=== PATIENT | female | born 1995 | race Caucasian/White ===

== ENCOUNTER 2023-08-10 20:57 | Emergency (ER) | payer MEDICAID ==
[~2023-08-10] VITALS: Ht 165.1 cm; Wt 79.8 kg
[2023-08-10] MEDS ORDERED: DOXYCYCLINE 100MG CAPSULE PO STA ×2 (21:06→21:56)
[2023-08-10] MEDS ORDERED: cephalexin 250mg capsule PO ONE ×2 (21:10→22:00)
[2023-08-10] MEDS ORDERED: DOXY100C43 PO (22:06)
[2023-08-10] MEDS ORDERED: CEPH250T PO (22:06)
[2023-08-10 22:15] VITALS: BP 145/83; PULSE 88; RESP 15; TEMP 98.3; O2SAT 96
== END 2023-08-10 22:17 | disposition home or self-care (01) ==
LOC: ER 20:58
DX: I87.8 Other specified disorders of veins (principal); L03.116 Cellulitis of left lower limb
CPT/HCPCS: 93971; 99284

== ENCOUNTER 2025-09-15 11:36 | Inpatient (IN) | payer MEDICAID ==
[~2025-09-15] VITALS: Ht 162.6 cm; Wt 88.0 kg
--- NOTE | 2025-09-15 11:48 | Physician Documentation ---
History of Present Illness ~ Chief Complaint: Extremity Swelling Stated Complaint: LEG SWELLING Time Seen by MD: 11:47 HPI 30-year-old female presenting with leg swelling The patient is a challenging historian. She is unsure about many details. She tells me that she recently had a about a week ago. She also reports that for the past several weeks she has had significant swelling in her legs. She can not tell me exactly how long this has been happening. She states they are very swollen and painful. Does report some exertional shortness of breath. No current chest pain. She says that she was recently admitted to [facility], but does not know what they did. She does have a history of fentanyl and methamphetamine use History otherwise limited at this time Later, records were obtained from [facility]. It appears she had a stillbirth at 35 weeks, requiring a . She had significant anemia with a hemoglobin of 2.9 received multiple blood transfusions. She did receive you significant IV fluids, which may have contributed to her leg swelling. She had a cardiac echo which showed an ejection fraction of 60-65%. A CTA chest which showed no pulmonary embolus. This was also concerning for bilateral basilar pneumonia and esophagitis. Tetanus witin 5 years: No Medication Reconciliation Allergies: Coded Allergies: No Known Allergies (Unverified , 09/15/25) Past Medical History Past Medical History: No Pertinent History Past Surgical History: no surgical history Alcohol Use: Rarely Drug Use: methamphetamine Lives In: Home Review of Systems Constitutional: Reports: weakness; Denies: fever Respiratory: Reports: shortness of breath Cardiovascular: Reports: edema; Denies: chest pain Physical Exam Vital Signs: Temperature: 97.9, Source: Oral, Heart Rate: 109, Respiratory Rate: 18, BP: 138/109, Pulse Oximetry: 100, Weight: 88.000 Physical Exam General: This is a young female, with massive swelling to both legs HEENT: Atraumatic, oropharynx is dry Heart: Mild tachycardic, appears regular Lungs: Diminished breath sounds bilateral, normal work of breathing, normal oxygen saturation on room air Abdomen: Soft, nondistended Postsurgical scar over the lower abdomen in a horizontal orientation, appears well healing, no surrounding erythema or purulent drainage No significant abdominal tenderness on palpation Extremities: Massive pitting edema to both lower extremities, diffuse tenderness on palpation, no overlying erythema Neuro: Alert and oriented Psychiatric: Appears anxious but is cooperative with exam Progress Results/Orders Results/Orders Orders - DURGA KENDALL MD Pantoprazole 40mg/Ns 100ml Bag (Protonix (09/15/25 18:35) Vital Signs 09/15/25 09/15/25 09/15/25 09/15/25 11:39 12:03 12:59 14:25 Temp 97.9 97.7 Pulse 109 94 Resp 18 14 13 B/P (MAP) 138/109 106/52 Pulse Ox 100 09/15/25 09/15/25 09/15/25 09/15/25 14:47 15:45 16:00 16:21 Temp 97.9 97.6 97.9 Pulse 93 95 100 Resp 12 12 12 11 B/P (MAP) 102/59 112/70 114/88 09/15/25 09/15/25 16:38 18:52 Temp 97.9 Pulse 100 99 Resp 13 14 B/P (MAP) 121/67 (85) 121/74 (90) Pulse Ox 100 100 O2 Flow Rate 0 0 Laboratory Tests Test 09/15/25 11:59 09/15/25 17:41 09/15/25 19:08 09/15/25 19:37 White Blood Count 9.4 10.4 Red Blood Count 1.96 L 2.40 L Hemoglobin 6.1 *L 7.3 L Hematocrit 17.5 *L 21.0 *L Mean Corpuscular Volume 89.2 87.8 Mean Corpuscular Hemoglobin 31.1 H 30.3 Mean Corpuscular Hemoglobin Concent 34.9 34.6 Red Cell Distribution Width 32.9 H 19.2 H Platelet Count 158 143 Mean Platelet Volume 9.2 9.3 Neutrophils (%) (Auto) 73.0 Lymphocytes (%) (Auto) 21.8 Monocytes (%) (Auto) 4.6 Eosinophils (%) (Auto) 0.1 Basophils (%) (Auto) 0.5 Neutrophils # (Auto) 6.8 Lymphocytes # (Auto) 2.0 Monocytes # (Auto) 0.4 Eosinophils # (Auto) 0.0 Basophils # (Auto) 0.0 CBC Comment Differential Total Cells Counted 100 Neutrophils % (Manual) 72.0 Band Neutrophils % 2.0 Lymphocytes % (Manual) 16.0 L Monocytes % (Manual) 9.0 Metamyelocytes % 1.0 H Nucleated Red Blood Cells 6 H Platelet Estimate Normal Red Blood Cell Morphology Perf Polychromasia 2+ Basophilic Stippling Anisocytosis 3+ Microcytosis 1+ Macrocytosis 1+ Schistocytes 1+ Hematology Pathologist Comment See note Sodium Level 135 Potassium Level 4.0 Chloride Level 100 Carbon Dioxide Level 29.4 Anion Gap 6 L Blood Urea Nitrogen 38 H Creatinine 0.92 H Estimated GFR/1.73 m2 71 BUN/Creatinine Ratio 41.3 H Glucose Level 110 H Hemoglobin A1c 4.8 Calcium Level 7.9 L Magnesium Level 2.1 Total Bilirubin 0.6 Direct Bilirubin 0.2 Aspartate Amino Transf (AST/SGOT) 21 Alanine Aminotransferase (ALT/SGPT) 24 Alkaline Phosphatase 120 H Lactate Dehydrogenase 676 H Pro-B-Type Natriuretic Peptide 225 H Total Protein 5.1 L Albumin 1.7 L Globulin 3.4 Albumin/Globulin Ratio 0.5 L Thyroid Stimulating Hormone (TSH) 4.32 Chemistry Comments Ethyl Alcohol Level < 10 Hematology Comments Urine Specimen Description Cln catch midstream Urine Color Yellow Urine Clarity Slightly cloudy Urine pH 6.0 Urine Specific [place] <=1.005 Urine Protein Negative Urine Glucose (UA) Negative Urine Ketones Negative Urine Occult Blood Moderate H Urine Nitrite Negative Urine Bilirubin Negative Urine Urobilinogen 4.0 H Urine Leukocyte Esterase Small H Urine RBC 3-10 Urine WBC 10-20 H Urine Squamous Epithelial Cells Few Urine Bacteria Few Urine Mucus Few Urine Culture Indicated Indicated Volume Urine Centrifuged 10 ml Urine Comment EKG/XRAY/CT/US/VASC/MRI CT : Impression I personally interpreted the CT scan, and this shows no acute process in the abdomen, and diffuse edema in the legs without obvious cause Consults/PCP Consults/PCP : Additional Comment Consult: I spoke to the internal medicine service, for admission in the hospital Medical Decision Making Additional information obtaine: family Findings Mother reports that the patient had renal failure, and left [facility] because of fentanyl withdrawal. General Diff Dx:Considerations: Unlikely: Laceration Knee Diff Dx:Considerations: Unlikely: Laceration Ankle Diff Dx:Considerations: Unlikely: Hematoma Foot Diff Dx:Considerations: Unlikely: Fracture-tarsal Toe Diff Dx:Considerations: Unlikely: Fracture Additional Comment Differential includes volume overload, CHF, renal failure, electrolyte derangement, sepsis, withdrawal Assessment The patient presents with severe swelling to her legs as well as generalized weakness. Labs show significant anemia and so she was given a blood transfusi on. Labs otherwise show normal kidney function. The cause of her leg swelling was unclear. Initially we could not obtain records from the outside hospital. I then proceeded with imaging including an ultrasound that shows no DVT, and CT scan which shows edema but no dangerous obvious cause. She does not have findings that really suggest infection. She did have significant anxiety and signs of opiate withdrawal and so she was given IV Dilaudid and Valium. Given her severe swelling and pain she will require admission for diuresis and further evaluation. Departure Admitted to Inpatient Unit: yes, to hospitalist Impression: Primary Impression: Edema of lower extremity Additional Impression: Acute blood loss anemia Condition: Guarded Referrals: NO PRIMARY CARE PROVIDER (PCP) Signature Scribe Signature: na Attestation: The note accurately reflects work and decisions made by me.Durga Kendall MD 09/16/25 04:10 na STEFANIE MUSA MD Sep 15, 2025 11:48 DURGA KENDALL MD Sep 16, 2025 04:10
[2025-09-15 12:11] LABS: RED CELL DISTRIBUTION WIDTH 32.9 % (11.5-14.5)
[2025-09-15 12:12] LABS: MEAN PLATELET VOLUME 9.2 FL (7.4-10.4)
[2025-09-15 12:27] LABS: BANDS% (MANUAL) 2.0 % (0-10); LYMPHOCYTES % (MANUAL) 16.0 % (21-51); METAMYLEOCYTES% (MANUAL) 1.0 % (0-0); MONOCYTES % (MANUAL) 9.0 % (2-12); NEUTROPHILS % (MANUAL) 72.0 % (42-75); NUCLEATED RED BLOOD CELLS 6 /100WBC (0-0)
[2025-09-15 12:28] LABS: PLATELET ESTIMATE NORMAL
--- NOTE | 2025-09-15 12:29 | ELECTROCARDIOGRAPH REPORT ---
[facility] Test Date: 2025-09-15 Test Time: 12:25:13 Pat Name: LACHELLE VALDEZ Department: [facility]-ER Patient ID: [id number] Room: ED 6 Gender: F Ship Steward: : 1995 Requested By: STEFANIE MUSA Order Number: [id number] Reading MD: Dr. JOAQUIN Reese Measurements Intervals [place] Rate: 104 P: 59 MS: 112 QRS: 76 QRSD: 87 T: 63 QT: 336 QTc: 442 Interpretive Statements Sinus tachycardia Electronically Signed On 09-16-2025 18:41:[address] JOAQUIN Reese Please click the below link to view image of tracing.
[2025-09-15 13:21] LABS: CREATININE 0.92 MG/DL (0.40-0.90); TOTAL CARBON DIOXIDE 29.4 MMOL/L (24-32); eCRCL 76 ML/MIN; eGFR 71 ML/MIN
[2025-09-15 13:32] LABS: PRO BRAIN NATRIURETIC PEPTIDE 225 PG/ML (0-125)
[2025-09-15 14:25] VITALS: BP 106/52; PULSE 94; RESP 13; TEMP 97.7
[2025-09-15 14:47] VITALS: BP 102/59; PULSE 93; RESP 12; TEMP 97.9
[2025-09-15 15:45] VITALS: BP 112/70; PULSE 95; RESP 12; TEMP 97.6
[2025-09-15] MEDS: diazepam inj 5 MG/ML inj. IV ONE (16:00)
--- NOTE | 2025-09-15 16:03 | VASCULAR REPORT ---
Bilateral lower extremity venous duplex Clinical History: Pain Comparison: VASC VL VENOUS on DOS: 08/10/23 Technique: Duplex Doppler evaluation of the deep venous systems of both lower extremities from the common femoral veins to the popliteal veins including color Doppler and spectral/pulsed waveform analysis was performed. Findings: RIGHT SIDE: The common femoral vein demonstrates appropriate compressibility and waveform variability. There is compressibility/patency of the great saphenous vein at the proximal thigh. The femoral vein demonstrates appropriate compressibility and waveform variability. The deep femoral vein demonstrates appropriate compressibility and waveform variability. The popliteal vein demonstrates appropriate compressibility and waveform variability. There is normal compressibility at the tibioperoneal trunk. LEFT SIDE: The common femoral vein demonstrates appropriate compressibility and waveform variability. There is compressibility/patency of the great saphenous vein at the proximal thigh. The femoral vein demonstrates appropriate compressibility and waveform variability. The deep femoral vein demonstrates appropriate compressibility and waveform variability. The popliteal vein demonstrates appropriate compressibility and waveform variability. There is normal compressibility at the tibioperoneal trunk. Impression: No right or left femoropopliteal venous thrombosis.
[2025-09-15 16:21] VITALS: BP 114/88; PULSE 100; RESP 11; TEMP 97.9
--- NOTE | 2025-09-15 17:52 | RADIOLOGY REPORT ---
Exam: CT CT ABDOMEN PELVIS History: bilateral severe leg swelling COMPARISON: None Technique: Multidetector spiral CT of the abdomen and pelvis was performed from lung bases to pubic symphysis. Intravenous contrast was administered during this examination. Portal venous imaging was obtained. Axial, coronal and sagittal multiplanar reformats were performed by the technologist on a separate workstation. Radiation Dose : 1. Abdomen/Pelvis: CTDIvol 26.21 mGy, DLP 1320.01 mGy*cm. CONTRAST: Type of contrast: Omnipaque 350 Contrast injected: 100 ml Findings: Lung Bases: No acute or significant lung base finding. Normal heart size. No pleural or pericardial effusion. Liver: The liver appears enlarged. No focal lesions. Normal hepatic vascular enhancement. Gallbladder and Biliary Tree: Unremarkable Spleen: Unremarkable Pancreas: The pancreas is normal in appearance without focal lesions or abnormal enhancement. Adrenal Glands: Unremarkable Kidneys: No hydronephrosis. Bladder: Unremarkable Bowel: Circumferential thickening of the distal esophagus. Small hiatal hernia. The stomach is grossly normal in appearance. Small bowel and colon are normal in caliber and distribution. The appendix is not visualized; however, no secondary findings of acute appendicitis identified. Ascites: Absent Lymphadenopathy: No mesenteric, retroperitoneal or periportal lymphadenopathy. Abdominal Wall and Mesentery: Unremarkable. Vasculature: The visualized abdominal aorta is normal in size and caliber. Abdominal and pelvic vessels demonstrate normal enhancement. Pelvic Organs: Uterus is enlarged. Musculoskeletal: No aggressive focal bony lesions, acute fractures or dislocation. IMPRESSION: Bulky uterus. Circumferential thickening of the distal esophagus presumably related to esophagitis. Please correlate clinically and consider endoscopy to exclude any mass. No clear cause for leg swelling. Radiation optimization: All CT scans at this facility use at least one of these dose optimization techniques: automated exposure control mA and/or kV adjustment per patient size (includes targeted exams where dose is matched to clinical indication) or iterative reconstruction.
--- NOTE | 2025-09-15 17:57 | RADIOLOGY REPORT ---
INDICATION: BILATERAL TOTAL LEG SWELLING AND REDNESS COMPARISON: None TECHNIQUE: CT of the both lower extremities was performed without contrast. Volume transverse images were obtained and reconstructed in multiple planes using bone and soft tissue algorithms. Radiation Dose Information: CT Dose: CTDI volume is 11.92 mGy. Dose-length product is 1195.53 mGy*cm FINDINGS: Diffuse soft tissue edema throughout both lower extremities and appears symmetric. This is worse in the lower shins and ankles. No organized fluid collections. No fracture or malalignment. No erosive bony changes IMPRESSION: Severe diffuse soft tissue swelling throughout both lower extremities. Cause not entirely clear. All CT scans at this medical facility are performed using dose modulation techniques as appropriate to a performed exam including the following: Automated exposure control was utilized; adjustment of the MA and/or KV according to patient size; and use of iterative reconstruction technique.
[2025-09-15] MEDS: pantoprazole 40MG/NS 100ML BAG 100 ML IV SCH (18:41)
[2025-09-15] MEDS: furosemide 10 MG/1 ML 10ml inj IV ONE (18:42)
[2025-09-15 19:18] LABS: MEAN PLATELET VOLUME 9.3 FL (7.4-10.4); RED CELL DISTRIBUTION WIDTH 19.2 % (11.5-14.5)
[2025-09-15 20:02] LABS: LEUKOCYTE ESTERASE ,URINE SMALL (Neg); NITRITES, URINE NEGATIVE (Neg); OCCULT BLOOD,URINE MODERATE (Neg)
[2025-09-15 20:04] LABS: UA COLLECTION TYPE CLN CATCH MIDSTREAM
[2025-09-15 20:07] LABS: MUCUS STRANDS FEW /LPF (Neg); SQUAMOUS EPITHELIAL CELL,UR FEW /LPF (FEW)
[2025-09-15] MEDS ORDERED: magnesium sulf-water 4G/100mL 100 ML IV PRN (20:50)
[2025-09-15] MEDS ORDERED: diazepam inj 5 MG/ML inj. IV PRN (20:50)
[2025-09-15] MEDS ORDERED: magnesium sulf-water 2g/50mL 50 ML IV PRN (20:50)
[2025-09-15] MEDS ORDERED: ondansetron/PF 4mg/2ml inj IV PRN (20:50)
[2025-09-15] MEDS ORDERED: docusate sod 100mg capsule PO PRN (20:50)
[2025-09-15] MEDS ORDERED: PERFLUTREN PROTEIN-A MICROSPHR (Optison) 0.22 MG/ML 3ML VIAL IV ONE (20:50)
[2025-09-15] MEDS ORDERED: magnesium hydroxide 30ml (MOM) UD suspension PO PRN (20:50)
[2025-09-15] MEDS ORDERED: HYDROmorphone/PF 0.2 MG/ML SYRINGE IV PRN (20:50)
[2025-09-15] MEDS ORDERED: potassium Cl 40MEQ/1/2NS 520ml 520 ML IV PRN (20:50)
[2025-09-15] MEDS ORDERED: potassium Cl 20 mEq SR tablet PO PRN ×2 (20:50)
[2025-09-15] MEDS ORDERED: mag hydrox/Alum hydrox/simeth 30ml oral suspension PO PRN (20:50)
[2025-09-15] MEDS ORDERED: magnesium Cl slow-release 64mg tablet PO PRN (20:50)
[2025-09-15] MEDS ORDERED: nicotine 14mg patch - 24hr TD PRN (21:35)
[2025-09-15] MEDS ORDERED: nicotine 14mg patch - 24hr TD ONE (21:35)
[2025-09-15] MEDS: HYDROmorphone inj. 0.5 MG/0.5 ML DISP.SYRIN IV PRN (21:43)
[2025-09-15] MEDS: normal saline 500ml IV soln 1,000 ML IV ONE (21:44)
[2025-09-15 22:21] LABS: LACTATE DEHYDROGENASE 676 U/L (81-234)
--- NOTE | 2025-09-15 22:48 | HISTORY AND PHYSICAL-Residence ---
History & Physical Providers to CC Resident Creating Document: AMANDA HERNANDEZJUAN ~ History of Present Illness Reason for Admit\Complaint: Symptomatic anemia from GI Bleeding, s/p Still and C section History of Present Illness A 28 years old female with a past medical history of severe polysubstance abuse ( fentanyl, methamphetamine, tobacco, alcohol), A3 L1 who was recently admitted to [facility] for possible DIC from retained still and conception on Last September 08 complicated with severe anemia and left AMA presented to the ER for chronic painful severe bilateral leg swelling and vomiting of the blood. She is a poor historian. She stated that she had a still and C section on last September 08 which was possibly complicated with DIC and sepsis from the possible RPOC found to have sever anemia of Hb 2.9 for which she was given total PRBC [address] [facility]. At that time, she endorsed that she has been vomiting of the black color staff and passing the blood clots through her canal after she found to have positive blood culture for Coagulase negative Stap aureus for which she was given IV ABx. Today, she came in our ER for having severe SOB and still vomiting of the black stuff with the main concern of painful bilateral severe leg swellings which made her total bed bound for nearly 2 weeks now. She attributed all of her events to her drugs abuse. She denied for orthopnea PND. 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 She denied for any personal and family blood dyscrasia including blood clots DVT and PE before. In ER, patient was found to have severe anemia with hemoglobin 6.1 for which 1 unit of PRBC's was given. She was wondering when she will be discharged very soon. She left AMA from [facility] because she was not given enough pain medication for her pain. Allergies: Coded Allergies: No Known Allergies (Unverified , 09/15/25) Home Medications Home Medications Active Past Medical History Past Medical History severe polysubstance abuse ( fentanyl, methamphetamine, tobacco, alcohol), A3 L1 Past Surgical History Surgical History Comment S/p for still Past Social History Social History Comment Severe polysubstance abuse-fentanyl, methamphetamine, tobacco, ethanol 4 times of with a 3 times of miscarriage, she started her since she was 13 years old Alcohol Use: Rarely Drug Use: Methamphetamine Lives In: Home ROS All Other Systems: Reviewed and Negative Constitutional: Reports: weakness; Denies: fever Respiratory: Reports: shortness of breath Cardiovascular: Reports: edema; Denies: chest pain Exam Vitals: Vital Signs Date Time Temp Pulse Resp B/P (MAP) Pulse Ox O2 Delivery O2 Flow Rate FiO2 09/15/25 21:44 97.9 112 14 111/66 (81) 100 0 General: General: Well alert, well oriented, not confused, not agitated, not in acute distress, well cooperated during the physical. HEENT: HEENT: Conjunctive are pink, sclerae clear, no icterus, pupil is equal in both sides, reactive to light, no ear discharge, no pharyngeal erythema or an edema, mouth and lips are dry. Her the whole face showing abnormal skin condition reasonable to livedo reticularis skin pattern only over the face. Neck: Neck: Supple, no JVD, no lymphadenopathy and thyromegaly. Chest: Lungs:Equal air entry on both lungs, no additional sounds Cardiovascular: Heart: S1-S2 regular sinus tachycardia, no gallops, no rubs, no murmurs Abdomen: Abdomen: No visible peristalsis, Bowel sounds present on auscultation, soft, nontender, no guarding, no rigidity Extremities: Extremities: No obvious deformities, very severe >3+ pitting tender edema bilaterally, warm on touch, capillary refill intact, able to wiggle toes both sides, peripheral pulsations are intact on both sides Central Nervous System: CHIP MACHINE OPERATOR: No focal neurological deficits, no motor and sensory weakness in all 4 extremities, could move all 4 extremities Musculoskeletal: Musculoskeletal: No joint swelling, deformities, inflammations, and no scoliosis and back tenderness Skin: Skin: No active skin lesions and rashes Diagnostic Data Last Recorded Lab Results: 09/15/25 1908 09/15/25 1159 Diagnostic Data: Laboratory Tests Test 09/15/25 21:34 Coagulation Comments Coagulation Clinical Comments Counseling Services Smoking & Tobacco Cessation: > 10 Minutes Advance Care Planning Advanced Care plannin - 30 Minutes Additional Plan A 28 years old female with a past medical history of severe polysubstance abuse ( fentanyl, methamphetamine, tobacco, alcohol), A3 L1 who was recently admitted to [facility] for possible DIC from retained still and conception on Last September 08 complicated with severe anemia and left AMA presented to the ER for chronic painful severe bilateral leg swelling and vomiting of the blood. # Symptomatic anemia from # Possible GI bleeding Vs Complications from previous Still / RPOC and menorrhagia # Painful bilateral severe pitting legs edema -was given one unit of PRBC for Hb 6.1 in ER, rechecked was 7.3 -ER physician will request the GI Consultation for possible EGD in the AM -NPO and H&H Q6H -IV loading dose Protonix 40 mg was given in ER, followed by IV infusion Protonix -Pending FOBT -One time 500 cc NS bolus was given for her symptomatic anemia with sinus tachycardia -her severe tender and pitting bilateral pedal edema etiology were not exclude out at the moment, which could possibly from the exaggerate total 5 units of blood transfusion with a short period for her severe hemoglobin 2.9 versus polysubstance abuse, for which she was given 60 mg of Lasix were given -Monitor her Bleeding per Vagina, to monitor for any RPOC discharge through canal -Ordered Fibrinogen to rule out possible DIC from RPOC. Normal Plt -work up for evidence of intravascular hemolysis pending # polysubstance abuse ( fentanyl, methamphetamine, tobacco, EtOH) -pending drug screen, ETOH level -nicotine patch 14 daily as needed, explained and educated about the potential coronary vasospasm and chest pain from nicotine patch -social services director and a substance navigation # possible ANKUR most probably from the renal 2/2 substance abuse # nonspecific elevation of alkaline phosphatase # asymptomatic bacteriuria -to differentiate between hep active versus orthopedic induced hyper alkaline phosphatamia by ordering GGT -strict I's and o's monitoring -not necessary antibiotic therapy for asymptomatic bacteriuria, awaiting culture and sensitivity, and blood culture and sensitivity CODE STATUS: Full code DVT prophylaxis: SC heparin Analgesia/sedation: Hydromorphone only needed S patient pain through show was very long Lines/tubes: PIV GI prophylaxis: Protonix Nutrition: NPO Prognosis: Guarded Disposition: Continue medical management including IV I Protonix, substance navigation, social services director, pain control, H&H, GI consultation, PT eval and DC plan. Resident attestation: AMANDA HERNANDEZ MD Internal Medicine Resident, PGY3 [facility] Patient left AMA before I could see her Date of Service: Sep 15, 2025 Billing Provider: GOMEZ RAMIREZ MD, TIN, RES Sep 15, 2025 22:48 GOMEZ RAMIREZ MD Sep 16, 2025 02:55
[2025-09-15 22:53] LABS: ETHANOL < 10 MG/DL (<10)
[2025-09-15 23:15] VITALS: BP 112/78; PULSE 100; RESP 16; TEMP 97.9; O2SAT 100
--- NOTE | 2025-09-15 23:17 | DISCHARGE SUMMARY-Residence ---
Discharge Summary Providers to CC Resident Creating Document: AMANDA HERNANDEZ, RES ~ Discharge Summary Admission Diagnosis: Possible GI bleeding w/ symptomatic anemia Hospital Course DATE OF ADMISSION: 09/15/25 DATE OF DISCHARGE:09/15/25 (Left AMA) Discharge Diagnosis\Comment: # Symptomatic anemia from # Possible GI bleeding Vs Complications from previous Still / RPOC and menorrhagia # Painful bilateral severe pitting legs edema # polysubstance abuse ( fentanyl, methamphetamine, tobacco, EtOH)# possible ANKUR most probably from the renal 2/2 substance abuse # nonspecific elevation of alkaline phosphatase # asymptomatic bacteriuria Operations\Procedures: None Consultants: None Complications: None Condition on DC: Unstable Discharge Summary: A 28 years old female with a past medical history of severe polysubstance abuse ( fentanyl, methamphetamine, tobacco, alcohol), A3 L1 who was recently admitted to [facility] for possible DIC from retained still and conception on Last September 08 complicated with severe anemia and left AMA p resented to the ER for chronic painful severe bilateral leg swelling and vomiting of the blood. Patient was admitted to the PCU floor for further management and workup. -was given one unit of PRBC for Hb 6.1 in ER, rechecked was 7.3 -ER physician will request the GI Consultation for possible EGD in the AM -NPO and H&H Q6H -IV loading dose Protonix 40 mg was given in ER, followed by IV infusion Protonix -Pending FOBT -One time 500 cc NS bolus was given for her symptomatic anemia with sinus tachycardia -her severe tender and pitting bilateral pedal edema etiology were not exclude out at the moment, which could possibly from the exaggerate total 5 units of blood transfusion with a short period for her severe hemoglobin 2.9 versus polysubstance abuse, for which she was given 60 mg of Lasix were given -Monitor her Bleeding per Vagina, to monitor for any RPOC discharge through canal -Ordered Fibrinogen to rule out possible DIC from RPOC. Normal Plt -work up for evidence of intravascular hemolysis pending -pending drug screen, ETOH level -nicotine patch 14 daily as needed, explained and educated about the potential coronary vasospasm and chest pain from nicotine patch -social problems specialist and a substance navigation After patient agreed to be hospitalized in ER, ER nurse reported that patient wanted to leave AMA. After 20 minutes discussion and education and counselling about the life-threatening situation from the current medical condition without having proper treatment, ic patient fully understood the consequences. Pt would be picked by her friend and she was told to go to ER [facility] for any emergency condition. Resident MD attestation: AMANDA HERNANDEZ MD Internal Medicine Resident, PGY3 [facility] Patient left AMA before I could see her *Problems/Diagnosis: (1) Cellulitis Status: Acute (2) Acute blood loss anemia Status: Acute (3) Edema of lower extremity Status: Acute Total Time Spent on D/C: > 30 Minutes Date of Service: Sep 15, 2025 Billing Provider: GOMEZ RAMIREZ MD, TIN, RES Sep 15, 2025 23:16 GOMEZ RAMIREZ MD Sep 16, 2025 02:55
[2025-09-15 23:51] LABS: INR 1.0 INR
[2025-09-15 23:52] LABS: APTT 20 SECONDS (22-32)
--- NOTE | 2025-09-15 23:52 | RADIOLOGY REPORT ---
CHEST RADIOGRAPH Indication: Baseline Technique: Single frontal view of the chest was obtained COMPARISON: None FINDINGS: Lines and Tubes: None Lungs: Clear Pleura: No effusion. No pneumothorax. Cardiomediastinal contours: Unremarkable Bones: Unremarkable IMPRESSION: 1. No acute disease.
[2025-09-16] MEDS ORDERED: heparin, porcine 5000 units/ml vial SQ SCH (08:00)
[2025-09-16] MEDS ORDERED: K and/or MAG REPLACEMENT MC SCH (08:00)
== END 2025-09-15 23:26 | disposition left against medical advice (07) | DRG 561 ==
LOC: ER 11:37 → ED HOLD 19:53
PROVIDERS: ADMIT Internal Medicine; ATTEND Internal Medicine
PROC: 30233N1 Transfusion of Nonautologous Red Blood Cells into Peripheral Vein, Percutaneous Approach (ICD-10-PCS; principal; 2025-09-15)
PROC: BW211ZZ Computerized Tomography (CT Scan) of Abdomen and Pelvis using Low Osmolar Contrast (ICD-10-PCS; 2025-09-15)
DX: O90.81 Anemia of the puerperium (principal); O90.49 Other postpartum acute kidney failure; K92.2 Gastrointestinal hemorrhage, unspecified; O86.29 Other urinary tract infection following delivery; N17.9 Acute kidney failure, unspecified; F19.10 Other psychoactive substance abuse, uncomplicated; O9A.23 Injury, poisoning and certain other consequences of external causes complicating the puerperium; T40.411A Poisoning by fentanyl or fentanyl analogs, accidental (unintentional), initial encounter; D62 Acute posthemorrhagic anemia; O99.63 Diseases of the digestive system complicating the puerperium; D64.89 Other specified anemias; Z53.21 Procedure and treatment not carried out due to patient leaving prior to being seen by health care provider; R82.71 Bacteriuria; O99.325 Drug use complicating the puerperium; T43.651A Poisoning by methamphetamines accidental (unintentional), initial encounter; Z98.891 History of uterine scar from previous surgery; Y92.89 Other specified places as the place of occurrence of the external cause; Z72.0 Tobacco use
CPT/HCPCS: 36415; 36430; 71045; 73701; 74177; 80053; 80320; 81001; 81003; 82248; 83036; 83615; 83735; 83880; 84443; 85007; 85025; 85027; 85384; 85610; 85730; 86885; 86900; 86901; 86920; 87040; 87088; 93005; 93970; 96365; 96375; 96376; 99285; G0378; J1171; J1938; J2470; J3360; J7030; J7040; P9016; Q9967